=== PATIENT | female | born 1975 | race Caucasian/White ===

== ENCOUNTER 2018-01-11 14:44 | Emergency (ER) | payer MEDICAID, OTHER ==
[2018-01-11 14:51] VITALS: BP 107/57
[2018-01-11] MEDS ORDERED: DIPH/PERTUSS(ACELL)/TETANUS VAC/PF 0.5 ML SYR (>=10YO) IM ONE (14:58)
[2018-01-11] MEDS ORDERED: CEPHALEXIN 500 MG CAPSULE PO ONE (14:59)
--- NOTE | 2018-01-11 14:59 | ER Document Report ---
ED Medical Screen (RME) - General Chief Complaint: Dog Bite Stated Complaint: DOG BITE Time Seen by Provider: 01/11/18 14:58 Notes: 42 years old female was bitten by her old ACCIDENTALLY, the left back of her hand. Sustained 2 laceration each is about 2.5 cm and 2 cm. TRAVEL OUTSIDE OF THE [place] IN LAST 30 DAYS: No Physical Exam - Vital signs Vitals: Temp Pulse Resp BP Pulse Ox 98.0 F 80 20 107/57 L 100 01/11/18 14:50 01/11/18 14:50 01/11/18 14:50 01/11/18 14:50 01/11/18 14:50 Course - Vital Signs Vital signs: Temp Pulse Resp BP Pulse Ox 98.0 F 80 20 107/57 L 100 01/11/18 14:50 01/11/18 14:50 01/11/18 14:50 01/11/18 14:50 01/11/18 14:50
[2018-01-11] MEDS ORDERED: ONDANSETRON 4 MG TAB.RAPDIS PO ONE ×2 (15:01→17:41)
--- NOTE | 2018-01-11 15:51 | ER Document Report ---
ED Animal Bite - General Chief Complaint: Dog Bite Stated Complaint: DOG BITE Time Seen by Provider: 01/11/18 14:58 Mode of Arrival: Ambulatory Information source: Patient TRAVEL OUTSIDE OF THE [place] IN LAST 30 DAYS: No - HPI Location of injury: LUE - HAND Severity of injury: Bitten Onset: Just prior to arrival Where did incident occur: HOME Quality of pain: Sharp, Throbbing Severity: Moderate Context of attack: Animals fighting Summary of what happened: TWO OF PATIENT'S DOGS WERE FIGHTING, SHE TRIED TO INTERVENE Type of animal: Dog Appearance of animal: Appeared well Animal's immunizations: UTD Animal captured or known: Yes Animal control notified: Yes - Related Data Allergies/Adverse Reactions: No Known Allergies Allergy (Verified 01/11/18 15:45) Past Medical History - General Information source: Patient - Social History Smoking Status: Never Smoker Cigarette use (# per day): No Chew tobacco use (# tins/day): No Frequency of alcohol use: None Drug Abuse: None Lives with: Family Family History: Reviewed & Not Pertinent Patient has suicidal ideation: No Patient has homicidal ideation: No - Past Medical History Cardiac Medical History: Reports: None Pulmonary Medical History: Reports: None EENT Medical History: Reports: None Endocrine Medical History: Reports: None Renal/ Medical History: Reports: None. Denies: Hx Peritoneal Dialysis Malignancy Medical History: Reports: None GI Medical History: Reports: None Musculoskeletal Medical History: Reports None Psychiatric Medical History: Reports: Hx Bipolar Disorder, Hx Depression Past Surgical History: Reports: Hx Section - x 3, Hx Oral Surgery Review of Systems - Review of Systems Constitutional: No symptoms reported EENT: No symptoms reported Cardiovascular: No symptoms reported Respiratory: No symptoms reported Gastrointestinal: No symptoms reported Genitourinary: No symptoms reported Female Genitourinary: No symptoms reported Musculoskeletal: No symptoms reported Skin: See HPI Neurological/Psychological: Tingling - FINGERS, DISTAL TO WOUND Physical Exam - Vital signs Vitals: Temp Pulse Resp BP Pulse Ox 98.0 F 80 20 107/57 L 100 01/11/18 14:50 01/11/18 14:50 01/11/18 14:50 01/11/18 14:50 01/11/18 14:50 Interpretation: Normal - General General appearance: Appears well, Alert In distress: None - HEENT Head: Normocephalic Eyes: Normal Ears: Normal Nasal: Normal Mouth/Lips: Normal Mucous membranes: Normal - Respiratory Respiratory status: No respiratory distress - Cardiovascular Rhythm: Regular - Abdominal Inspection: Normal - Back Back: Normal - Extremities General upper extremity: No: Normal inspection - L. HAND (SEE BELOW) General lower extremity: Normal inspection Hand: Laceration - DOSUM L. HAND (SEE GRAPHIC) - Neurological Neuro grossly intact: Yes Cognition: Normal Orientation: AAOx4 - Psychological Associated symptoms: Normal affect, Normal mood - Skin Skin Temperature: Warm Skin Moisture: Dry Skin Color: Normal Skin Turgor: Elastic Course - Vital Signs Vital signs: Temp Pulse Resp BP Pulse Ox 98.0 F 80 20 107/57 L 100 01/11/18 14:50 01/11/18 14:50 01/11/18 14:50 01/11/18 14:50 01/11/18 14:50 Procedures - Laceration/Wound Repair Left Hand Time completed: 18:40 Wound length (cm): 4.5 - TWO WOUNDS, 2cm AND 2.5cm Wound's Depth, Shape: Superficial, Irregular, Contused tissue Laceration pre-procedure: Sterile PPE donned Anesthetic type: 1% Lidocaine Volume Anesthetic (mLs): 6 Wound explored: Clean, No foreign body removed Irrigated w/ Saline (mLs): 60 Wound Debrided: Minimal Wound Repaired With: Sutures Suture Size/Type: 4:0, Prolene Number of Sutures: 5 Layer Closure?: No Post-procedure wound care: Sterile dressing applied Post-procedure NV exam normal: Yes Complications: No Notes: 01/11/18 19:19 NO TENDONS OR TENDON SHEATHS OR BONES SEEN IN DEPTHS OF WOUND. NO FB SEEN ON RADIOGRAPHS. Hands back picture: 1 - 2.0cm LACERATON, SUTURED 2 - 2.5cm LACERATION, SURTURED. Discharge - Discharge Clinical Impression: Dog bite of hand Qualifiers: Encounter type: initial encounter Laterality: left Qualified Code(s): S61.452A - Open bite of left hand, initial encounter Condition: Stable Disposition: HOME, SELF-CARE Instructions: Animal Bites ([facility]), Elevate the Injury ([facility]), Hand Laceration ( [facility]), Oral Narcotic Medication ([facility]), Prophylactic Antibiotic ([facility]) Additional Instructions: KEEP BANDAGE CLEAN AND DRY. KEEP HAND ELEVATED MUCH POSSIBLE. MEDS DIRECTED. FOLLOW UP FOR SUTURE REMOVAL IN 10 DAYS. RETURN TO E.R. FOR RE-EVALUATION IF PROBLEMS, ANY TIME. Prescriptions: Hydrocodone/Acetaminophen [Ingalls 5-325 mg Tablet] 1 tab PO Q4HP PRN #14 tablet PRN Reason: For Pain Amox Tr/Potassium Clavulanate [Augmentin 500-125 Tablet] 1 tab PO Q8 #14 tablet Referrals: JIMBO BRAVO FNP [Primary Care Provider] - Follow up as needed
--- NOTE | 2018-01-11 16:26 | RADIOLOGY REPORT (SQ) ---
EXAM DESCRIPTION: HAND LEFT 3 VIEWS COMPLETED DATE/TIME: 01/11/2018 4:18 pm REASON FOR STUDY: DOG BITE COMPARISON: None. EXAM PARAMETERS: NUMBER OF VIEWS: Three views. TECHNIQUE: AP, lateral and oblique radiographic images acquired of the left hand. LIMITATIONS: None. FINDINGS: MINERALIZATION: Normal. BONES: No acute fracture or dislocation. No worrisome bone lesions. JOINTS: No effusions. SOFT TISSUES: No soft tissue swelling. No foreign body. OTHER: No other significant finding. IMPRESSION: NEGATIVE STUDY OF THE LEFT HAND. NO RADIOGRAPHIC EVIDENCE OF ACUTE INJURY. TECHNICAL DOCUMENTATION: JOB ID: [id number] [employer]- All Rights Reserved Reading location - IP/workstation name: [email or web address]
[2018-01-11] MEDS ORDERED: LIDOCAINE 1% INJ-PF (10 MG/ML) 30 ML SDV INJ ONE (16:32)
[2018-01-11] MEDS ORDERED: AMPICILLIN SOD/SULBACTAM 3 GM VIAL IV ONE (16:33)
[2018-01-11] MEDS ORDERED: HYDROMORPHONE HCL INJ/PF 2 MG/ML AMPULE IV ONE (17:41)
== END 2018-01-11 19:01 | disposition home or self-care (01) ==
LOC: ER 14:44
DX: S61.452A Open bite of left hand, initial encounter (principal); W54.0XXA Bitten by dog, initial encounter; Y93.K9 Activity, other involving animal care; R20.2 Paresthesia of skin
CPT/HCPCS: 99283; 90471; 96365; 73130; 90715; 12002; S0119; J0295; J1170

== ENCOUNTER 2019-10-20 04:40 | Emergency (ER) | payer OTHER ==
[2019-10-20] MEDS ORDERED: NORMAL SALINE 1000 ML 1,000 ML IV ONE (05:00)
[2019-10-20] MEDS ORDERED: ONDANSETRON HCL INJ/PF 4 MG/2 ML SDV IV ONE (05:00)
[2019-10-20] MEDS ORDERED: MORPHINE SULFATE 10 MG/ML INJ IV ONE (05:00)
--- NOTE | 2019-10-20 05:02 | ER Document Report ---
ED GI/ - General Chief Complaint: Flank Pain Stated Complaint: RIGHT FLANK PAIN, NAUSEA Time Seen by Provider: 10/20/19 04:55 Primary Care Provider: JIMBO BRAVO FNP [Primary Care Provider] - Follow up as needed Notes: Patient is a 44-year-old female that comes emergency department for chief complaint of flank pain that is sharp and is making her very nauseated, symptoms started at about 3:30 AM and woke her up. She denies abdominal pain, she denies injury, she denies fever/chills. She denies vomiting. She denies vaginal bleeding or discharge. She denies history of kidney stones but states she has had kidney infections in the past. She denies smoking, alcohol, recreational drugs. Past medical history of ovarian cysts, anxiety/depression, bipolar, ADHD. She has had 3 C-sections but no other surgeries reportedly. TRAVEL OUTSIDE OF THE [place] IN LAST 30 DAYS: No - Related Data Allergies/Adverse Reactions: No Known Allergies Allergy (Verified 10/20/19 04:44) Home Medications: Bipolar medication. Anxiety medication. topimax Past Medical History - General Information source: Patient - Social History Smoking Status: Never Smoker Frequency of alcohol use: None Drug Abuse: None Lives with: Family Family History: Reviewed & Not Pertinent Patient has homicidal ideation: No Renal/ Medical History: Reports: Hx Ovarian Cysts. Denies: Hx Peritoneal Dialysis Psychiatric Medical History: Reports: Hx Bipolar Disorder, Hx Depression Past Surgical History: Reports: Hx Section - x 3, Hx Oral Surgery Review of Systems - Review of Systems Constitutional: No symptoms reported EENT: No symptoms reported Cardiovascular: No symptoms reported Respiratory: No symptoms reported Gastrointestinal: See HPI Genitourinary: See HPI Female Genitourinary: No symptoms reported Musculoskeletal: No symptoms reported Skin: No symptoms reported Hematologic/Lymphatic: No symptoms reported Neurological/Psychological: No symptoms reported Physical Exam - Vital signs Vitals: Temp Pulse Resp BP Pulse Ox 97.2 F 71 23 H 120/83 100 10/20/19 04:45 10/20/19 04:45 10/20/19 04:45 10/20/19 04:45 10/20/19 04:45 - Notes Notes: GENERAL: Slightly restless and mildly uncomfortable HEAD: Normocephalic, atraumatic. EYES: Pupils equal, round, and reactive to light. Extraocular movements intact. ENT: Oral mucosa moist, tongue midline. Oropharynx unremarkable. Airway patent. NECK: Full range of motion. Supple. Trachea midline. No lymphadenopathy. LUNGS: Clear to auscultation bilaterally, no wheezes, rales, or rhonchi. No respiratory distress. Non-tender chest wall. HEART: Regular rate and rhythm. No murmur ABDOMEN: Completely nontender abdomen, no guarding rigidity, or distention. Bowel sounds present. GENITOURINARY: Deferred EXTREMITIES: Moves all 4 extremities spontaneously. No edema, normal radial and dorsalis pedis pulses bilaterally. No cyanosis. BACK: There is some right CVA tenderness. Left is unremarkable. No cervical, thoracic, lumbar midline tenderness. No saddle anesthesia, normal distal neurovascular exam. Moves all extremities in full range of motion. NEUROLOGICAL: Alert and oriented x3. Normal speech. Cranial nerves II through XI I grossly intact. Strength 5/5 in all extremities. PSYCH: Normal affect, normal mood. SKIN: Warm, dry, normal turgor. No rashes or lesions noted. Course - Re-evaluation Re-evalutation: Patient has a completely benign abdomen. However she does have some right-sided CVA tenderness. She is slightly restless and appears to be uncomfortable. After initial medications patient still complaining of some discomfort but appears improved, after Toradol symptoms appeared to resolve and patient fell asleep. CBC, chemistry unremarkable. test negative. Urinalysis pending. CT was performed because of patient's sudden onset of severe pain with nausea. CT shows right-sided 3-4 millimeter ureterolithiasis with some hydronephrosis and hydroureter in the proximal aspect of the ureter. There is also possible cyst on the right ovary versus just being the ovary. Torsion is not excluded, however patient has absolutely no abdominal pain, patient states she is very familiar with ovarian cysts and this does not feel like one. She declined ultrasound. I feel this is appropriate based on her evaluation, I believe her symptoms are from a passing ureterolithiasis. Urinalysis is slightly strange showing unremarkable dipstick but some white blood cells and a few bacteria. Negative nitrates. Discussed with patient. Culture was placed and patient will be covered prophylactically with Keflex. Patient will be treated for passing ureterolithiasis, referred to urology, discussed expectations, follow-up, and return precautions. Patient states understanding and agreement. Stable and well-appearing at time of discharge. - Vital Signs Vital signs: Temp Pulse Resp BP Pulse Ox 97.2 F 71 23 H 120/83 100 10/20/19 04:45 10/20/19 04:45 10/20/19 04:45 10/20/19 04:45 10/20/19 04:45 - Laboratory Result Diagrams: 10/20/19 05:06 10/20/19 05:06 Laboratory results interpreted by me: 10/20/19 10/20/19 10/20/19 05:06 05:06 06:47 Hgb 11.4 L Hct 34.1 L RDW 14.5 H Est GFR (MDRD) Non-Af 54 L Glucose 137 H Urine Protein 30 H Discharge - Discharge Clinical Impression: Right flank pain, Ureterolithiasis Condition: Stable Disposition: HOME, SELF-CARE Additional Instructions: Your passing an approximately 3-4 mm kidney stone on the right side. You also have small kidney stones on the left side which could pass in the future. You most likely will be able to pass this, I recommend that you drink plenty of fluids, you can take the Toradol along with the Percocet if needed for pain, take the Zofran as needed for nausea. We are covering you with Keflex antibiotics to make sure this is not developing to an infection. Please call the urologist referral listed today to set up your close follow-up for additional management. Return to the emergency department for any concerning or worsening symptoms in cluding severe worsening pain, fever, uncontrolled vomiting, or any other concerning symptoms. [facility] [address] [place], [place] [id number] [facility] [address] [place], [place] [id number] Prescriptions: Ketorolac Tromethamine [Toradol 10 mg Tablet] 10 mg PO Q8HP PRN #24 tablet PRN Reason: Cephalexin Monohydrate [Keflex 500 mg Capsule] 500 mg PO BID 7 Days #14 capsule Oxycodone HCl/Acetaminophen [Percocet 5-325 mg Tablet] 1 - 2 tab PO TID PRN #20 tablet PRN Reason: Ondansetron [Zofran Odt 4 mg Tablet] 1 - 2 tab PO Q4H PRN #15 tab.rapdis PRN Reason: For Nausea/Vomiting Forms: Return to Work Referrals: JIMBO BRAVO FNP [Primary Care Provider] - Follow up as needed
[2019-10-20 05:22] LABS: ABSOLUTE EOSINOPHILS # (AUTO) 0.1 10^3/uL (0.0-0.6); ABSOLUTE LYMPHOCYTES (AUTO) 2.1 10^3/uL (0.5-4.7); ABSOLUTE MONOCYTES (AUTO) 0.8 10^3/uL (0.1-1.4); ABSOLUTE NEUT (AUTO) 4.2 10^3/uL (1.7-8.2); BASOPHILS % (AUTO) 0.4 % (0-2); EOSINOPHILS % (AUTO) 1.9 % (0-6); HEMATOCRIT 34.1 % (36.0-47.0); HEMOGLOBIN 11.4 g/dL (12.0-15.5); LYMPHOCYTES % (AUTO) 29.1 % (13-45); MEAN CORPUSCULAR HEMOGLOBIN 28.6 pg (27.0-33.4); MEAN CORPUSCULAR HGB CONC 33.4 g/dL (32.0-36.0); MEAN CORPUSCULAR VOLUME 86 fl (80-97); MONOCYTES % (AUTO) 11.3 % (3-13); PLATELET COUNT 288 10^3/uL (150-450); RED BLOOD COUNT 3.98 10^6/uL (3.72-5.28); RED CELL DISTRIBUTION WIDTH 14.5 % (11.5-14.0); SEGMENTED NEUTROPHILS % (AUTO) 57.3 % (42-78); TOTAL CELLS COUNTED % (AUTO) 100 %; WHITE BLOOD COUNT 7.3 10^3/uL (4.0-10.5)
[2019-10-20 05:39] LABS: ALBUMIN 3.7 g/dL (3.5-5.0); ALKALINE PHOSPHATASE 69 U/L (38-126); ANION GAP 6 (5-19); ASPARTATE AMINO TRANSFERASE 19 U/L (14-36); BILIRUBIN,TOTAL 0.3 mg/dL (0.2-1.3); BLOOD UREA NITROGEN 16 mg/dL (7-20); CALCIUM 8.4 mg/dL (8.4-10.2); CARBON DIOXIDE 24 mmol/L (22-30); CHLORIDE 107 mmol/L (98-107); GLUCOSE 137 mg/dL (75-110); POTASSIUM 3.9 mmol/L (3.6-5.0); TOTAL PROTEIN 6.5 g/dL (6.3-8.2)
[2019-10-20] MEDS ORDERED: KETOROLAC TROMETHAMINE INJ/PF 30 MG/1 ML SDV IV ONE (05:58)
--- NOTE | 2019-10-20 06:54 | RADIOLOGY REPORT (SQ) ---
CT ABDOMEN AND PELVIS WITHOUT INTRAVENOUS CONTRAST: 10/20/2019 5:49 AM CDT HISTORY: 44-year old with . COMPARISON: None available TECHNIQUE: Axial contiguous images were obtained from the lung bases to the proximal femurs without oral or intravenous contrast administered. Sagittal and coronal reconstructions were also obtained and reviewed. This exam was performed according to our departmental dose-optimization program, which includes automated exposure control, adjustment of the mA and/or KV according to the patient's size and/or use of iterative reconstruction technique. FINDINGS: The lung bases appear clear without evidence of a focal consolidative airspace opacity or effusions. Evaluation of the solid organs is limited by the lack of intravenous contrast. The visualized hepatic parenchyma is unremarkable. The gallbladder demonstrates no evidence of calcified gallstones The spleen, pancreas, and adrenals are normal in size and contour. There is mild to moderate right hydroureteronephrosis, secondary to a 3-4 mm calculus at the right ureterovesicular junction. There is mild stranding around the right kidney and right ureter. There are several punctate left renal calculi measuring up to 2 to 3 mm. There is a hypodensity at the right adnexa measuring at least 6.3 x 3.4 cm. This may represent the right ovary. This is an abnormal location, and torsion is not excluded. This could also represent physiologic cysts. Bladder is minimally distended, but grossly appears unremarkable. The uterus is present. The stomach is not well distended. The small bowel loops appear unremarkable. No pericolonic inflammatory stranding is seen. The appendix appears unremarkable. There is no evidence of pneumoperitoneum or free fluid. The aorta and IVC appear normal in size. No significantly enlarged lymph nodes are seen in the abdomen or pelvis. Review of the bone show no evidence of any suspicious lytic or blastic lesions. IMPRESSION: The right ovary is prominent in size which could be due to physiologic cysts. Torsion is not fully excluded. Further evaluation with ultrasound of the pelvis could be considered. There is mild to moderate right hydroureteronephrosis, secondary to a 3 to 4 mm calculus at the right ureterovesicular junction. Superimposed infection is not excluded.
[2019-10-20] MEDS ORDERED: HYDROMORPHONE HCL INJ/PF 2 MG/ML AMPULE IV ONE (07:08)
[2019-10-20 07:19] LABS: AMORPHOUS SEDIMENT,URINE TRACE /HPF; APPEARANCE,URINE TURBID; BILIRUBIN,URINE NEGATIVE (NEGATIVE); COLOR,URINE YELLOW; GLUCOSE, URINE NEGATIVE (NEGATIVE); KETONES,URINE NEGATIVE (NEGATIVE); LEUKOCYTE ESTERASE,URINE NEGATIVE (NEGATIVE); NITRITE,URINE NEGATIVE (NEGATIVE); PROTEIN,URINE 30 mg/dL (NEGATIVE); URINE SPECIFIC GRAVITY 1.014; UROBILINOGEN,URINE NEGATIVE mg/dL (<2.0)
[2019-10-20] MEDS ORDERED: HYDROCODONE/ACETAMINOPHEN 5-325 MG (6 TAB/ER DISP) PO PRN (07:35)
[2019-10-20] MEDS ORDERED: ONDANSETRON ODT 4 MG TAB (6 TAB/ER DISP) PO PRN (07:35)
[2019-10-20 09:13] VITALS: BP 119/74
== END 2019-10-20 09:19 | disposition home or self-care (01) ==
LOC: ER 04:40
DX: N20.1 Calculus of ureter (principal); R10.9 Unspecified abdominal pain; R11.0 Nausea
CPT/HCPCS: 99284; 96361; 96374; 96375; 36415; 87086; 83690; 84703; 85025; 87088; 80053; 81001; 74176; J1885; J2270; J1170; J2405; J7030